=== PATIENT | female | born 1960 | race Caucasian/White ===

== ENCOUNTER 2018-07-08 17:28 | Emergency (ER) | payer OTHER ==
[2018-07-08] MEDS ORDERED: fentaNYL 100 MCG/2 ML INJ IVP ONE ×2 (17:41→18:36)
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
[2018-07-08] MEDS ORDERED: OXYCODONE/APAP 5/325 TAB PO ONE (19:03)
[2018-07-08 19:57] VITALS: BP 141/74
== END 2018-07-08 20:29 | disposition home or self-care (01) ==
PROC: 2W38X1Z Immobilization of Right Upper Extremity using Splint (ICD-10-PCS; principal; 2018-07-08)
DX: S52.354A Nondisplaced comminuted fracture of shaft of radius, right arm, initial encounter for closed fracture (principal); S16.1XXA Strain of muscle, fascia and tendon at neck level, initial encounter; S60.812A Abrasion of left wrist, initial encounter; V49.49XA Driver injured in collision with other motor vehicles in traffic accident, initial encounter; Y92.410 Unspecified street and highway as the place of occurrence of the external cause; Y99.9 Unspecified external cause status
CPT/HCPCS: 96374; A4565; J3010